=== PATIENT | female | born 1955 | race African-American/Black ===

== ENCOUNTER 2021-04-30 12:55 | Emergency (ER) | payer OTHER ==
[2021-04-30 13:05] VITALS: TEMP 99.1; BMI 20.7
[2021-04-30 13:56] LABS: HEMATOCRIT 40.1 % (32.4-45.2); HEMOGLOBIN 13.5 GM/dl (10.7-15.3); INR 1.12 (0.82-1.09); MCH 30.3 pg (25.7-33.7); MCHC 33.8 g/dl (32.0-36.0); MEAN CELL VOLUME 89.6 fl (80-96); MEAN PLT VOLUME 8.8 fl (7.5-11.1); PLATELET COUNT 204 10^3/uL (134-434); PROTHROMBIN TIME (PATIENT) 12.4 SEC (10.2-13.0); RBC 4.47 M/mm3 (3.60-5.2); RDW 13.5 % (11.6-15.6); WHITE BLOOD COUNT 4.6 K/mm3 (4.0-10.8)
[2021-04-30 14:00] LABS: BILIRUBIN,TOTAL 1.7 mg/dl (0.2-1); CREATININE 1.1 mg/dl (0.55-1.3); TOT PROT 7.8 g/dl (6.4-8.2)
[2021-04-30] MEDS ORDERED: LOSARTAN POTASSIUM 50 MG TABLET PO ONE (14:37)
[2021-04-30] MEDS ORDERED: LOSARTAN POTASSIUM 50 MG TABLET ONE (14:41)
[2021-04-30 15:00] LABS: PLATELET ESTIMATE ADEQUATE
[2021-04-30 15:56] VITALS: BP 182/109; PULSE 72
[2021-04-30] MEDS ORDERED: amLODIPine BESYLATE 5 MG TABLET (FP) ONE (15:59)
[2021-04-30] MEDS ORDERED: amLODIPine BESYLATE 5 MG TABLET (FP) PO ONE (16:18)
== END 2021-04-30 16:29 | disposition home or self-care (01) ==
LOC: FER 12:55
DX: R42 Dizziness and giddiness (principal); I10 Essential (primary) hypertension
CPT/HCPCS: 36415; 70450-TC; 71045-TC-FY; 80053; 82550; 84484; 85025; 85610; 93005; 99285-25